=== PATIENT | female | born 1990 | race Caucasian/White ===

== ENCOUNTER 2022-04-28 17:16 | Emergency (ER) | payer SELFPAY ==
[2022-04-28 17:23] VITALS: BMI 24.7
[2022-04-28 20:08] LABS: URINE APPEARANCE CLEAR; URINE BILIRUBIN NEGATIVE (NEGATIVE); URINE COLOR YELLOW; URINE GLUCOSE (UA) NEGATIVE (NEGATIVE); URINE KETONE TRACE (NEGATIVE); URINE LEUK ESTERASE NEGATIVE (NEGATIVE); URINE NITRITE NEGATIVE (NEGATIVE); URINE PROTEIN NEGATIVE (NEGATIVE); URINE UROBILINOGEN 0.2 mg/dL (0.2-1.0)
[2022-04-28 21:23] VITALS: BP 105/59; PULSE 69; RESP 17; TEMP 97.9
== END 2022-04-28 21:45 | disposition home or self-care (01) ==
LOC: JER 17:16
DX: O26.892 Other specified pregnancy related conditions, second trimester (principal); R10.9 Unspecified abdominal pain; Z3A.18 18 weeks gestation of pregnancy
CPT/HCPCS: 36415; 76815; 76817-TC; 81003; 84703; 87086; 87491; 87591; 99284-25

== ENCOUNTER 2022-08-14 17:10 | Inpatient (IN) | payer OTHER ==
[2022-08-14 18:09] VITALS: BMI 24.2
[2022-08-14] MEDS ORDERED: CITRIC ACID/SODIUM CITRATE 30 ML UNIT-DOSE CUP PO ONE (18:30)
[2022-08-14] MEDS ORDERED: ELECTROLYTE-148 SOLN 1,000 ML IV SCH (18:30)
[2022-08-14] MEDS ORDERED: ELECTROLYTE-148 SOLN 500 ML IV ONE (18:30)
[2022-08-14 20:05] LABS: BASO % 0.4 % (0-2.0); EOS % 0.2 % (0-4.5); HEMATOCRIT 36.7 % (32.4-45.2); HEMOGLOBIN 12.2 GM/dL (10.7-15.3); LYMPH % 20.3 % (8-40); MCH 29.6 pg (25.7-33.7); MCHC 33.4 g/dl (32.0-36.0); MEAN CELL VOLUME 88.6 fl (80-96); MEAN PLT VOLUME 10.6 fl (7.5-11.1); MONO % 5.6 % (3.8-10.2); NEUT % 73.5 % (42.8-82.8); PLATELET COUNT 191 10^3/uL (134-434); RBC 4.14 M/mm3 (3.60-5.2); RDW 13.3 % (11.6-15.6); WHITE BLOOD COUNT 7.4 K/mm3 (4.0-10.0)
[2022-08-14 20:12] LABS: INR 0.85 (0.83-1.09); PROTHROMBIN TIME (PATIENT) 9.8 SEC (9.7-13.0)
[2022-08-14 20:15] LABS: ACTIVATED PTT 25.5 SECONDS (25.2-36.5)
[2022-08-14 20:18] LABS: CALCIUM 8.8 mg/dL (8.5-10.1)
[2022-08-14 20:19] LABS: BLOOD UREA NITROGEN 10.4 mg/dL (7-18)
[2022-08-14 20:22] LABS: CREATININE 0.7 mg/dL (0.55-1.3)
[2022-08-14] MEDS ORDERED: ACETAMINOPHEN 325 MG TABLET (FP) PO PRN ×2 (20:53→23:11)
[2022-08-14] MEDS ORDERED: morphine SULFATE/PF 1 MG/2 ML (2cc Syringe - QUVA) ONE (21:34)
[2022-08-14] MEDS ORDERED: OXYTOCIN 20 UNITS in 0.9% NS 20 UNIT/1,000 ML INFUS.BAG IV ONE (22:47)
[2022-08-14] MEDS: OXYTOCIN 20 UNITS in 0.9% NS 20 UNIT/1,000 ML INFUS.BAG IV SCH (23:00)
[2022-08-14] MEDS ORDERED: METHYLERGONOVINE MALEATE 0.2 MG/1 ML AMP IM PRN (23:11)
[2022-08-15] MEDS: ONDANSETRON 4 MG/2 ML VIAL IVPUSH PRN ×2 (00:56→05:35)
[2022-08-15] MEDS ORDERED: ACETAMINOPHEN 1000 MG/100 ML BAG IVPB PRN (02:03)
[2022-08-15] MEDS ORDERED: KETOROLAC TROMETHAMINE 30 MG/1 ML VIAL IVPUSH PRN (02:04)
[2022-08-15] MEDS: OXYTOCIN 20 UNITS in 0.9% NS 20 UNIT/1,000 ML INFUS.BAG IV SCH (05:47)
[2022-08-15 08:56] LABS: HEMATOCRIT 35.2 % (32.4-45.2); HEMOGLOBIN 11.8 GM/dL (10.7-15.3); MCHC 33.7 g/dl (32.0-36.0); MEAN CELL VOLUME 89.1 fl (80-96); PLATELET COUNT 173 10^3/uL (134-434); RBC 3.95 M/mm3 (3.60-5.2); RDW 13.3 % (11.6-15.6); WHITE BLOOD COUNT 10.6 K/mm3 (4.0-10.0)
[2022-08-15 09:31] LABS: ANISOCYTOSIS 0; HELMET CELLS 0; HOWELL-JOLLY BODIES 0; MACROCYTOSIS 0; OVALOCYTE 0; ROULEAU 0; SICKELED CELLS 0; TARGET CELLS 0; TEAR DROP CELLS 0; TOXIC GRANULATION 0
[2022-08-15] MEDS ORDERED: oxyCODONE HCL 5 MG TABLET PO PRN (11:11)
[2022-08-15 14:11] VITALS: RESP 18
[2022-08-15] MEDS: SIMETHICONE 80 MG TAB.CHEW (FP) PO PRN (17:49)
[2022-08-15] MEDS: IBUPROFEN 600 MG TABLET (FP) PO PRN (19:51)
[2022-08-15] MEDS ORDERED: BISACODYL 10 MG SUPP.RECT RC PRN (23:11)
[2022-08-16] MEDS: SIMETHICONE 80 MG TAB.CHEW (FP) PO PRN ×3 (08:37→23:36)
[2022-08-16] MEDS: IBUPROFEN 600 MG TABLET (FP) PO PRN (08:37)
[2022-08-16] MEDS: oxyCODONE HCL 5 MG TABLET PO PRN (19:04)
[2022-08-17] MEDS: oxyCODONE HCL 5 MG TABLET PO PRN (03:58)
[2022-08-17 09:35] LABS: BASO % 0.3 % (0-2.0); EOS % 2.4 % (0-4.5); HEMATOCRIT 31.6 % (32.4-45.2); HEMOGLOBIN 10.6 GM/dL (10.7-15.3); LYMPH % 20.6 % (8-40); MCH 30.1 pg (25.7-33.7); MCHC 33.6 g/dl (32.0-36.0); MEAN CELL VOLUME 89.6 fl (80-96); MEAN PLT VOLUME 10.2 fl (7.5-11.1); MONO % 6.6 % (3.8-10.2); NEUT % 70.1 % (42.8-82.8); PLATELET COUNT 177 10^3/uL (134-434); RBC 3.53 M/mm3 (3.60-5.2); RDW 13.4 % (11.6-15.6); WHITE BLOOD COUNT 6.3 K/mm3 (4.0-10.0)
[2022-08-17] MEDS: IBUPROFEN 600 MG TABLET (FP) PO PRN (10:04)
[2022-08-17 11:37] VITALS: BP 122/79; PULSE 67; TEMP 98.4
== END 2022-08-17 16:15 | disposition home or self-care (01) | DRG 540 ==
LOC: JLDR 17:10 → J3W 08-15 00:37
PROVIDERS: ADMIT Specialist; ATTEND Specialist
PROC: 10D00Z1 Extraction of Products of Conception, Low, Open Approach (ICD-10-PCS; principal; 2022-08-14)
DX: O41.03X0 Oligohydramnios, third trimester, not applicable or unspecified (principal); Z3A.39 39 weeks gestation of pregnancy; O69.1XX0 Labor and delivery complicated by cord around neck, with compression, not applicable or unspecified; Z37.0 Single live birth
CPT/HCPCS: 36415; 80048; 85025; 85610; 85730; 86780; 86850; 86900; 86901; 88307-TC; C9803-CS; U0003; U0005